=== PATIENT | female | born 1960 | race Caucasian/White ===

== ENCOUNTER → 2016-06-20 | Outpatient (CLI) | payer OTHER ==
[~2016-06-20] MED LIST: ADVAIR 100/501 DISK IH; ALBUTEROL SULF8.5 GM IH; ATORVASTATIN CA40 MG PO; CLEOCIN300 MG PO; DIOVAN HCT 11 TABLE1 PO; FLONASE16 G1 BOTH NARES; LEVOCETIRIZINE PO; NAPROXEN500 MG PO; PROAIR HFA8.5 GM IH; SINGULAIR10 MG PO; TRAMADOL HCL50 MG PO; XYZAL5 MG PO; ZYRTEC10 M3 PO
== END | disposition home or self-care (01) ==
LOC: RES 06-15 13:00
DX: J45.909 Unspecified asthma, uncomplicated (principal)
CPT/HCPCS: 94060; 94726; 94729

== ENCOUNTER → 2016-10-21 | Outpatient (CLI) | payer OTHER | END | disposition home or self-care (01) | LOC: RAD 11:55 | DX: R93.8 Abnormal findings on diagnostic imaging of other specified body structures (principal) | CPT/HCPCS: 70210 ==

== ENCOUNTER → 2016-12-09 | Outpatient (CLI) | payer OTHER | END | disposition home or self-care (01) | LOC: RAD 15:07 | DX: J32.4 Chronic pansinusitis (principal); J34.89 Other specified disorders of nose and nasal sinuses; J45.909 Unspecified asthma, uncomplicated; R09.82 Postnasal drip; J30.9 Allergic rhinitis, unspecified | CPT/HCPCS: 70486 ==

== ENCOUNTER → 2016-12-22 | Outpatient (CLI) | payer OTHER | END | disposition home or self-care (01) | LOC: CDC 12:18 | DX: Z01.810 Encounter for preprocedural cardiovascular examination (principal) | CPT/HCPCS: 93000 ==